=== PATIENT | male | born 1940 | race Caucasian/White ===

== ENCOUNTER 2018-06-09 11:59 | Outpatient (CLI) | payer OTHER, SELFPAY ==
--- NOTE | 2018-06-09 12:01 | DI.RAD.S_ITS ---
PROCEDURE: PAIN L/S TRANSFORAMINAL INJECT INDICATIONS: BIOMECHANICAL LESIONS FINDINGS: Fluoroscopic spot filming was performed to verify placement of spinal needles at the right L5-S1 level(s), as labeled on the films. Appropriate location(s) of the needle tip(s) was confirmed by injection of iodinated contrast. IMPRESSION: Successful right L5-S1 needle tip localization for transforaminal epidural steroid injection. Dictated by: Keyur Calvillo M.D. on 06/09/2018 at 15:04 Approved by: Keyur Calvillo M.D. on 06/09/2018 at 15:05
[2018-06-09 12:25] VITALS: BP 144/75; PULSE 58; RESP 18; TEMP 36.1; O2SAT 97
--- NOTE | 2018-06-09 13:04 | P.PCN_ITS ---
Procedures Date/Time Date of procedure: 06/09/18 Time of procedure: 13:02 General Procedure description: PREOP DIAGNOSIS 1. FORMAINAL STENOSIS WITH LE SYMPTOMS, POST OP DIAGNOSIS 1. FORMAINAL STENOSIS WITH LE SYMPTOMS, PROCEDURES 1.FLUOROSCOPICALLY GUIDED CONTRAST CONTROLLED TRANSFORAMINAL EPIDURAL STEROID INJECTION - RIGHT L5/S1 TFESI PHYSICIAN: Dung Ferrell DO INDICATIONS: Herb is referred by Dr. Collado for treatment of Foraminal Stenosis with right LE Symptoms FINDINGS Foraminal Nerve Root Compression secondary to disc disease and facet hypertrophy DESCRIPTION OF PROCEDURE Following denial of allergy and review of potential side effects and complications, including, but not necessarily limited to, infection, allergic reaction, local tissue breakdown, stroke, temporary or permanent nerve injury, paralysis, and possible , the patient indicated that the patient understood and agreed to proceed. An informed consent document was signed by the patient, witnessed by a nurse, and placed in the patient's chart. Additionally, other treatment options including medications, modalities, and physical therapy were reviewed with the patient. After review of previous anaesthesic history and IV conscious sedation the patient was deemed safe to proceed with todays procedure with IV conscious sedation as ASA class II designation. Safety time-out was performed to confirm patient ID, procedure to be performed and site of procedure. IV sedation was deemed niot necessary by the RN after DO, the patient remained responsive to all verbal commands In the prone position following sterile prep and drape of the lumbar region, the right L5/S1 posterior neuroforamen was identified fluoroscopically. The skin was anesthetized via a 25-gauge 1.5-inch needle with 1% lidocaine solution. At this point, a 25-gauge 3.5-inch spinal needle was atraumatically introduced and advanced under fluoroscopic guidance through the posterior right L5/S1 neuroforamen to approximately the anterior aspect of the canal. Depth was confirmed on lateral view. Following negative aspiration, injection of approximately 1.5 cc of Isovue 200 under live fluoroscopy in the AP view confirmed excellent flow along the nerve root, into the epidural space without vascular or intrathecal uptake observed Radiological data, including multiple fluoroscopic views of the lumbosacral spine, reveal a spinal needle at the right L5/S1 posterior neuroforamen. Subsequent views show flow of contrast material flowing superiorly and inferiorly along the nerve root confirming epidural flow. Subsequently, a test dose of 1.5 cc of 1% lidocaine solution was administered and patient was observed for two minutes for signs or symptoms of complications , including abdominal pain, shortness of breath, bilateral upper or lower extremity weakness, nausea and vomiting, prior to steroid injection. At this point, a total of 3 cc or 20 mg of dexamethasone and 80mg Depo Medrol was injected without incident. The procedure tolerated the procedure well without signs or symptoms of complications prior to transfer to the recovery area continued monitoring without incident. The patient was then transferred to the recovery area where they were observed for an appropriate time after the injection. The patient reported a VAS score of 7 prior to the procedure and a post-procedure VAS of 0. Total Fluoroscopy Time: 20.9 seconds Total Conscious Sedation Time: 24min POST OP INSTRUCTIONS The patient was provided a Pain Log to continue to record their response to the target-specific procedure prior to follow-up visit with their referring physician. Additionally, specific post-injection care instructions and a contact number to our office were provided if concerns arise regarding possible complications associated with the procedure are suspected. Dung Ferrell DO Complications: none
[2018-06-09 13:10] VITALS: BP 180/102; PULSE 71; RESP 18; O2SAT 96
[2018-06-09 13:15] VITALS: BP 184/100; PULSE 77; RESP 97; O2SAT 96
[2018-06-09 13:19] VITALS: BP 156/71; PULSE 72; RESP 18; O2SAT 96
[2018-06-09] MEDS: IOPAMIDOL 15 ML VIAL 3 ML INJ (13:26)
[2018-06-09] MEDS: DEXAMETHASONE 10 MG/ML VIAL 20 MG INJ (13:27)
[2018-06-09] MEDS: BUPIVACAINE 0.25% (PF) VIAL 2 ML INJ (13:27)
[2018-06-09] MEDS: methylPREDNISolone acetate 80 MG/ML VIAL INJ (13:27)
[2018-06-09 13:28] VITALS: BP 160/74; PULSE 70; RESP 20; O2SAT 98
[2018-06-09 13:39] VITALS: BP 135/65; PULSE 65; RESP 20; O2SAT 98
--- NOTE | 2018-06-10 13:42 | PC.NURSE ---
Called patient for follow up post procedure from yesterday. Pt did not answer so I left a message.
== END 2018-06-09 13:46 ==
LOC: RAD 12:00
PROVIDERS: PCP Family Medicine; Visit Provider Physical Medicine & Rehabilitation
DX: M48.07 Spinal stenosis, lumbosacral region (principal); M51.17 Intervertebral disc disorders with radiculopathy, lumbosacral region; M99.83 Other biomechanical lesions of lumbar region; M48.061 Spinal stenosis, lumbar region without neurogenic claudication
CPT/HCPCS: 64483; J1040; J1100; J2250

== ENCOUNTER → 2019-03-01 14:17 | Outpatient (CLI) | payer OTHER, SELFPAY ==
--- NOTE | 2019-03-01 14:20 | DI.RAD.S_ITS ---
PROCEDURE: PAIN L/S TRANSFORAMINAL INJECT INDICATIONS: SPINAL STENOSIS FINDINGS: Fluoroscopic spot filming was performed to verify placement of spinal needles at the L5-S1 level(s), as labeled on the films. Appropriate location(s) of the needle tip(s) was confirmed by injection of iodinated contrast. Dictated by: Doyle Willis M.D. on 03/01/2019 at 16:59 Approved by: Doyle Willis M.D. on 03/01/2019 at 17:00
[2019-03-01 15:00] VITALS: BP 132/54; PULSE 56; RESP 18; TEMP 36.4; O2SAT 99
[2019-03-01 15:33] VITALS: BP 148/63; PULSE 79; RESP 16; O2SAT 95
--- NOTE | 2019-03-01 15:35 | PC.NURSE ---
NO SEDATION MEDS GIVEN DURING PROCEDURE
[2019-03-01 15:38] VITALS: BP 160/95; PULSE 85; RESP 16; O2SAT 96
[2019-03-01] MEDS: BETAMETHASONE 30 MG/5 ML MDV 6 MG INJ (15:42)
[2019-03-01] MEDS: IOPAMIDOL 15 ML VIAL 3 ML INJ (15:42)
[2019-03-01] MEDS: DEXAMETHASONE 10 MG/ML VIAL 20 MG INJ (15:42)
[2019-03-01] MEDS: BUPIVACAINE 0.25% (PF) VIAL 2 ML INJ (15:42)
[2019-03-01 15:43] VITALS: BP 151/92; PULSE 74; RESP 16; O2SAT 94
--- NOTE | 2019-03-01 15:45 | PC.NURSE ---
NO SEDATION MEDS GIVEN. ASSISTING PT OFF TABLE AND TRANSPORTING TO POST PROC AREA IN STABLE CONDITION
--- NOTE | 2019-03-01 15:51 | PM.PROC.1 ---
Procedures Date/Time Date of procedure: 03/01/19 Time of procedure: 15:51 General Procedure description: PREOP DIAGNOSIS 1. FORMAINAL STENOSIS WITH LE SYMPTOMS, POST OP DIAGNOSIS 1. FORMAINAL STENOSIS WITH LE SYMPTOMS, PROCEDURES 1.FLUOROSCOPICALLY GUIDED CONTRAST CONTROLLED TRANSFORAMINAL EPIDURAL STEROID INJECTION - RIGHT L5/S1 TFESI PHYSICIAN: Dung Ferrell DO INDICATIONS: Herb is referred by for treatment of Foraminal Stenosis with right LE Symptoms FINDINGS Foraminal Nerve Root Compression secondary to disc disease and facet hypertrophy DESCRIPTION OF PROCEDURE Following denial of allergy and review of potential side effects and complications, including, but not necessarily limited to, infection, allergic reaction, local tissue breakdown, stroke, temporary or permanent nerve injury, paralysis, and possible , the patient indicated that the patient understood and agreed to proceed. An informed consent document was signed by the patient, witnessed by a nurse, and placed in the patient's chart. Additionally, other treatment options including medications, modalities, and physical therapy were reviewed with the patient. After review of previous anaesthesic history and IV conscious sedation the patient was deemed safe to proceed with todays procedure with IV conscious sedation as ASA class II designation. Safety time-out was performed to confirm patient ID, procedure to be performed and site of procedure. IV sedation was deemed unnecessary and thus not administered by the RN after DO order, titrated to patient comfort during the course of the procedure while the patient remained responsive to all verbal commands In the prone position following sterile prep and drape of the lumbar region, the right L5/S1 posterior neuroforamen was identified fluoroscopically. The skin was anesthetized via a 25-gauge 1.5-inch needle with 1% lidocaine solution. At this point, a 25-gauge 3.5-inch spinal needle was atraumatically introduced and advanced under fluoroscopic guidance through the posterior right L5/S1 neuroforamen to approximately the anterior aspect of the canal. Depth was confirmed on lateral view. Following negative aspiration, injection of approximately 1.5 cc of Isovue 200 under live fluoroscopy in the AP view confirmed excellent flow along the nerve root, into the epidural space without vascular or intrathecal uptake observed Radiological data, including multiple fluoroscopic views of the lumbosacral spine, reveal a spinal needle at the right L5/S1 posterior neuroforamen. Subsequent views show flow of contrast material flowing superiorly and inferiorly along the nerve root confirming epidural flow. Subsequently, a test dose of 1.5 cc of 1% lidocaine solution was administered and patient was observed for two minutes for signs or symptoms of complications, including abdominal pain, shortness of breath, bilateral upper or lower extremity weakness, nausea and vomiting, prior to steroid injection. At this point, a total of 3cc or 20mg of dexamethasone and 6mg of betamethesone was injected without incident. The procedure tolerated the procedure well without signs or symptoms of complications prior to transfer to the recovery area continued monitoring without incident. The patient was then transferred to the recovery area where they were observed for an appropriate time after the injection. The patient reported a VAS score of 7 prior to the procedure and a post-procedure VAS of 0. Total Fluoroscopy Time: 20.9 seconds Total Conscious Sedation Time: 24min POST OP INSTRUCTIONS The patient was provided a Pain Log to continue to record their response to the target-specific procedure prior to follow-up visit with their referring physician. Additionally, specific post-injection care instructions and a contact number to our office were provided if concerns arise regarding possible complications associated with the procedure are suspected. Dung Ferrell DO Complications: none
[2019-03-01 15:53] VITALS: BP 158/63; PULSE 48; RESP 18; O2SAT 96
--- NOTE | 2019-03-01 16:03 | PC.NURSE ---
Pt returned from procedure via wheelchair, he did not receive sedation. Able to move from w/c to chair with standby assist. Resumed monitoring from Sheryl BERG.
== END ==
PROVIDERS: PCP Family Medicine; Visit Provider Physical Medicine & Rehabilitation
DX: M48.07 Spinal stenosis, lumbosacral region (principal); M48.061 Spinal stenosis, lumbar region without neurogenic claudication; M51.17 Intervertebral disc disorders with radiculopathy, lumbosacral region; M99.83 Other biomechanical lesions of lumbar region
CPT/HCPCS: 64483; J0702; J1100; J2250; J3010

== ENCOUNTER → 2019-05-06 10:46 | Outpatient (CLI) | payer OTHER, SELFPAY ==
--- NOTE | 2019-05-06 10:48 | DI.MRI.S_ITS ---
PROCEDURE: MR LUMBAR SPINE WO CON INDICATIONS: Post laminectomy syndrome TECHNIQUE: Noncontrast sagittal T1 spin echo and T2 fast echo, sagittal STIR, axial T1 and T2 fast spin echo through the lumbar spine. In cases with scoliosis, additional coronal T2 fast spin echo may be performed. COMPARISON: [facility], XA, PAIN L/S TRANSFORAMINAL INJECT, 03/01/2019, 15:41. FINDINGS: Image quality: Excellent. Alignment and Curvature: There is normal bony alignment. Bone Marrow: Degenerative endplate signal changes are present in lumbar spine. No acute vertebral body compression fractures. Spinal Cord: Conus medullaris terminates at the L1-L2 level. Visualized cord demonstrates normal signal and size. Paraspinous Soft Tissues: No paravertebral masses. Note is made of a right renal cyst which is partially visualized. L1-L2: Mild loss of disc height and disc desiccation. There is diffuse posterior disc bulge and disc osteophyte complex. Mild bilateral facet arthropathy and hypertrophy of ligamentum flavum. The central canal is mildly narrowed. Mild bilateral foraminal stenosis. No definitive nerve root impingement. L2-L3: Mild loss of disc height and disc desiccation. There is diffuse posterior disc bulge and disc osteophyte complex. Mild bilateral facet arthropathy and hypertrophy of ligamentum flavum. The central canal is mildly narrowed. Mild bilateral foraminal stenosis. No definitive nerve root impingement. L3-L4: Preserved disc height. Mild to moderate disc desiccation. There is diffuse posterior disc bulge and disc osteophyte complex. Moderate bilateral facet arthropathy and hypertrophy of ligamentum flavum. The central canal is severely narrowed. Moderate left and mild right foraminal stenosis. There is nerve root impingement. L4-L5: Posterior decompression with bilateral laminectomies. Moderate loss of disc height and disc desiccation. There is diffuse posterior disc bulge and disc osteophyte complex. Moderate bilateral facet arthropathy. The central canal is patent. Moderate bilateral foraminal stenosis. There is nerve root impingement. L5-S1: Posterior decompression with bilateral laminectomies. Severe loss of disc height and disc desiccation. There is diffuse posterior disc bulge and posterior central disc protrusion. Mild bilateral facet arthropathy. The central canal is patent. Moderate bilateral foraminal stenosis. There is nerve root impingement. IMPRESSION: 1. Multilevel degenerative and postsurgical changes in lumbar spine as described. 2. Severe central canal stenosis at L3-L4. 3. Multilevel foraminal stenosis as described. Dictated by: Mariaelena Lamar M.D. on 05/06/2019 at 13:18 Approved by: Mariaelena Lamar M.D. on 05/06/2019 at 17:48
--- NOTE | 2019-05-06 10:48 | DI.MRI.S_ITS ---
PROCEDURE: MR CERVICAL SPINE WO CON INDICATIONS: Cervical stenosis TECHNIQUE: Noncontrast sagittal T1 spin echo and T2 fast spin echo, sagittal STIR, foraminal oblique sagittal T2 fast spin echo, and axial gradient echo or T2 fast spin echo through the cervical spine. COMPARISON: None. FINDINGS: Image quality: Excellent. Alignment and Curvature: There is normal bony alignment. Bone Marrow: There is an intraosseous hemangioma in C4 vertebral body. Degenerative endplate signal changes are present throughout the cervical spine Spinal Cord: There is loss of cord caliber and increased signal at level C6-C7 consistent with myelopathy and myelomalacia. No cerebellar tonsillar herniation. Paraspinous Soft Tissues: No paravertebral masses. Prevertebral soft tissues are normal in thickness. C2-C3: Preserved disc height. Mild disc desiccation. The central canal is patent. No foraminal stenosis. No definitive nerve root impingement. C3-C4: Severe loss of disc height and disc desiccation. There is diffuse posterior disc bulge and disc osteophyte complex. Mild bilateral facet arthropathy. The central canal is moderately narrowed. Severe foraminal stenosis bilaterally. Suspect bilateral nerve root impingement. C4-C5: Severe loss of disc height and disc desiccation. There is diffuse posterior disc bulge and disc osteophyte complex. Bilateral uncovertebral hypertrophy. Moderate right and mild left facet arthropathy. The central canal is moderately narrowed. Severe foraminal stenosis bilaterally. Suspect bilateral nerve root impingement. C5-C6: Severe loss of disc height and disc desiccation. There is diffuse posterior disc bulge and disc osteophyte complex. Bilateral uncovertebral hypertrophy. Mild bilateral facet arthropathy. The central canal is severely narrowed. Severe foraminal stenosis bilaterally. Suspect bilateral nerve root impingement. C6-C7: Severe loss of disc height and disc desiccation. There is diffuse posterior disc bulge and disc osteophyte complex. Bilateral uncovertebral hypertrophy. Mild bilateral facet arthropathy. The central canal is severely narrowed. Severe foraminal stenosis bilaterally. Suspect bilateral nerve root impingement. C7-T1: Normal appearance. IMPRESSION: 1. Multilevel degenerative disc disease and facet arthropathy as described. 2. Severe central canal stenosis at C5-C6 and C6-C7, moderate central canal stenosis at C3-C4 and C4-C5. 3. Multilevel foraminal stenosis as described, severe at C3-C4 bilaterally, C4-C5 bilaterally, C5-C6 bilaterally and C6-C7 bilaterally. 4. There is loss of cord caliber and abnormal cord signal in the lower cervical cord at level of C6-C7 consistent with myelopathy and myelomalacia. Dictated by: Mariaelena Lamar M.D. on 05/06/2019 at 13:35 Approved by: Mariaelena Lamar M.D. on 05/06/2019 at 17:47
== END ==
PROVIDERS: PCP Family Medicine; Visit Provider Physical Medicine & Rehabilitation
DX: M48.02 Spinal stenosis, cervical region (principal); M48.061 Spinal stenosis, lumbar region without neurogenic claudication; M96.1 Postlaminectomy syndrome, not elsewhere classified; M47.812 Spondylosis without myelopathy or radiculopathy, cervical region; G95.89 Other specified diseases of spinal cord; Z98.1 Arthrodesis status
CPT/HCPCS: 72141; 72148

== ENCOUNTER 2019-07-19 09:43 | Outpatient (CLI) | payer OTHER, SELFPAY ==
--- NOTE | 2019-07-19 09:44 | DI.RAD.S_ITS ---
PROCEDURE: PAIN L/SI FACET INJ/BLK 1STL INDICATIONS: SPONDYLOSIS FINDINGS: Fluoroscopic spot filming was performed to verify placement of spinal needles at the L4-L5 and L5-S1 level(s), as labeled on the films. Appropriate location(s) of the needle tip(s) was confirmed by injection of iodinated contrast. Dictated by: Doyle Willis M.D. on 07/19/2019 at 15:00 Approved by: Doyle Willis M.D. on 07/19/2019 at 15:01
[2019-07-19 09:50] VITALS: BP 139/67; PULSE 49; RESP 16; TEMP 36.2; O2SAT 95
[2019-07-19 11:30] VITALS: BP 92/62; PULSE 60; RESP 16; O2SAT 98
[2019-07-19 11:35] VITALS: BP 132/73; PULSE 64; RESP 20; O2SAT 95
[2019-07-19 11:40] VITALS: BP 150/34; PULSE 65; RESP 20; O2SAT 95
[2019-07-19] MEDS: BUPIVACAINE 0.5% (PF) VIAL 2 ML INJ (11:46)
[2019-07-19] MEDS: LIDOCAINE 1% 20 ML 10 ML INJ (11:47)
[2019-07-19] MEDS: BETAMETHASONE 30 MG/5 ML MDV 12 MG INJ (11:47)
[2019-07-19] MEDS: IOPAMIDOL 15 ML VIAL 3 ML INJ (11:47)
[2019-07-19 11:48] VITALS: BP 139/42; PULSE 70; RESP 18; O2SAT 96
--- NOTE | 2019-07-19 11:50 | PC.NURSE ---
Post procedure note: No sedation given per patient request. VSS throughout procedure. No complaints of pain. Sat up from procedure table and transfered to W/C without difficulty. Patient states pain level improved. Transported to post procedure for discharge via wheelchair. Report given to Taty Jackson RN.
--- NOTE | 2019-07-19 11:55 | P.PCN_ITS ---
Procedures Date/Time Date of procedure: 07/19/19 Time of procedure: 11:55 General Procedure description: PREOP DIAGNOSIS 1. FACET ARTHROPATHY 2. AXIAL LBP 3. MULTILEVEL DDD POST OP DIAGNOSIS 1. FACET ARTHROPATHY 2. AXIAL LBP 3. MULTILEVEL DDD PROCEDURES 1. FLUORSCOPICALLY GUIDED CONTRAST CONTROLLED FACET JOINT INJECTIONS BILATERAL L4/5, L5/S1 PHYSICIAN: Dung Ferrell, DO INDICATIONS Jaydon is referred by for treatment of Axial LBP FINDINGS Multilevel Facet Arthropathy with Clinically significant axial LBP DESCRIPTION OF PROCEDURE Fluoroscopically guided, contrast-controlled bilateral L4/5, L5/S1 facet joint injections. Following review of allergy and review of potential side effects and complications, including, but not necessarily limited to, infection, allergic reaction, local tissue breakdown, stroke, temporary or permanent nerve injury, paralysis, and possible , the patient indicated that the patient understood and agreed to proceed. An informed consent document was signed by the patient, witnessed by a nurse, and placed in the patient's chart. Additionally, other treatment options including medications, modalities, and physical therapy were reviewed with the patient. After review of previous anaesthesic history and IV conscious sedation the patient was deemed safe to proceed with todays procedure with IV conscious sedation as ASA class II designation. Safety time-out was performed to confirm patient ID, procedure to be performed and site of procedure. IV sedation was deemed unnecessary and thus not administered by the RN after DO order, titrated to patient comfort during the course of the procedure while the patient remained responsive to all verbal commands In the prone position, following sterile prep and drape of the lumbar region, the posterior aspect of the L4/5, L5/S1 facet joints were identified fluoroscopically. The skin was anesthetized via a 25-gauge 1.5-inch needle with 1% lidocaine solution into the corresponding facet joints. At this point, a 22-gauge 3.5-inch spinal needle was atraumatically introduced and advanced under fluoroscopic guidance into the corresponding facet joints. Following negative aspiration, injections of approximately 0.2-cc of Isovue 200 confirmed interarticular placement without vascular uptake. The identical procedure was then performed at the L4/5, L5/S1 facet joints on the left. Radiological data, including multiple fluoroscopic views of the lumbosacral spine, reveal a spinal needle at the L4/5, L5/S1 facet joints bilaterally. Subsequent views show flow of contrast material both superiorly and inferiorly within the joint space without vascular or intrathecal uptake. At this point, a total of 0.5 cc including a mixture of 0.25cc Marcaine and 0.25cc betamethasone was injected without complication into each of the corresponding facet joints. The patient tolerated the procedure well without signs or symptoms of complications prior to transfer to the recovery area continued monitoring without incident. The patient was then transferred to the recovery area where they were observed for an appropriate period of time after the injection. The patient reported a VAS score of 7 prior to the procedure and a post- procedure VAS of 0. Total Fluoroscopy Time: 20.3 seconds Total Conscious Sedation Time: 24min POST OP INSTRUCTIONS The patient was provided a Pain Log to continue to record their response to the target-specific procedure prior to follow-up visit with their referring physician. Additionally, specific post-injection care instructions and a contact number to our office were provided if concerns arise regarding possible complications associated with the procedure are suspected. Dung Ferrell, Complications: none
--- NOTE | 2019-07-19 14:26 | PC.NURSE ---
1155 rtr via w/c , post procedure , stable, snacks provided and tolerated.
== END 2019-07-19 12:03 | disposition home or self-care (01) ==
LOC: RAD 09:44
PROVIDERS: PCP Family Medicine; Visit Provider Physical Medicine & Rehabilitation
DX: M47.817 Spondylosis without myelopathy or radiculopathy, lumbosacral region (principal); M47.816 Spondylosis without myelopathy or radiculopathy, lumbar region; M54.5 Low back pain; M51.36 Other intervertebral disc degeneration, lumbar region; M51.37 Other intervertebral disc degeneration, lumbosacral region
CPT/HCPCS: 64493; 64494; J0702; J2250; J3010

== ENCOUNTER → 2020-03-10 09:27 | Outpatient (CLI) | payer OTHER, SELFPAY ==
[2020-03-11 08:27] LABS: COVID19 Sendout Not Detected (Not Detect)
== END ==
PROVIDERS: PCP Family Medicine; Visit Provider Physician Assistant
DX: Z01.818 Encounter for other preprocedural examination (principal)
CPT/HCPCS: 87635

== ENCOUNTER 2020-03-13 09:25 | Outpatient (CLI) | payer OTHER, SELFPAY ==
--- NOTE | 2020-03-13 09:26 | DI.RAD.S_ITS ---
PROCEDURE: PAIN L/S FACET INJ/BLK 1ST CAROL COMPARISON: None. INDICATIONS: SPONDYLOSIS FINDINGS: Fluoroscopic spot filming was performed to verify placement of spinal needles at the L4, L5, S1 level(s), as labeled on the films. Appropriate location(s) of the needle tip(s) was confirmed by injection of iodinated contrast. Dictated by: Doyle Willis M.D. on 03/13/2020 at 14:51 Approved by: Doyle Willis M.D. on 03/13/2020 at 14:52
[2020-03-13 09:58] VITALS: BP 129/67; PULSE 62; RESP 15; TEMP 36.1; O2SAT 97
[2020-03-13 10:39] VITALS: BP 149/99; PULSE 76; RESP 16; O2SAT 98
[2020-03-13 10:45] VITALS: BP 166/80; PULSE 68; RESP 16; O2SAT 98
[2020-03-13 10:49] VITALS: BP 150/66; PULSE 65; RESP 16; O2SAT 96
[2020-03-13] MEDS: BUPIVACAINE 0.5% (PF) VIAL 5 ML INJ (10:50)
[2020-03-13] MEDS: LIDOCAINE 1% 20 ML 10 ML INJ (10:50)
[2020-03-13] MEDS: IOPAMIDOL 15 ML VIAL 3 ML INJ (10:50)
[2020-03-13 10:54] VITALS: BP 152/72; PULSE 60; RESP 16; O2SAT 94
--- NOTE | 2020-03-13 10:57 | PC.NURSE ---
NO SEDATION MEDS GIVEN DURING THE PROCEDURE. ASSISTING PT OFF TABLE AND TRANSPORTING TO POST PROC AREA IN STABLE CONDITION. PASSING RN CARE OF PT OFF TO MORENA MUELLER.
--- NOTE | 2020-03-13 11:06 | P.PCN_ITS ---
Procedures Date/Time Date of procedure: 03/13/20 Time of procedure: 11:06 General Procedure description: Procedure description: 1. FACET ARTHROPATHY PROCEDURES: 1. BILATERAL- L4, L5 and S1 DIAGNOSTIC MB BLOCKS with LA Anesthetic PHYSICIAN: Dung Ferrell DO INDICATIONS Jaydon is referred by for treatment of Bilateral Axial LBP. DESCRIPTION OF PROCEDURE Fluoroscopically guided, contrast-controlled bilateral L4, L5 and S1 medial branch blocks with 0.5cc of 0.5% Marcaine. Following review of allergy and review of potential side effects and complications, including, but not necessarily limited to, infection, allergic reaction, local tissue breakdown, nerve injury, paralysis, stroke and possible , the patient indicated that the patient understood and agreed to proceed. An informed consent document was signed by the patient, witnessed by a nurse, and placed in the patient's chart. After review of previous anaesthesic history and IV conscious sedation the patient was deemed safe to proceed with todays procedure with IV conscious sedation as ASA class II designation. Safety time-out was performed to confirm patient ID, procedure to be performed and site of procedure. IV sedation was deemed unnecessary and thus not administered by the RN after DO order, titrated to patient comfort during the course of the procedure while the patient remained responsive to all verbal commands In the prone position, following sterile prep and drape of the lumbar region, the right L4, L5 and S1 anatomical location of the medial branch of the dorsal ramus was identified fluoroscopically. Subsequently an anesthetic skin wheal using 1% lidocaine solution was initiated at each of the anatomical spots. Subsequently then a 22-gauge 3.5-inch spinal needle was atraumatically introduced and advanced under fluoroscopic guidance at each of the corresponding sites at the right L4, L5 and S1 MB. After negative aspiration, 0.2cc of Isovue 200 was injected, confirming placement without vascular or intrathecal uptake. Subsequently then 0.5cc of 0.5% Marcaine solution was injected at each of the corresponding sites at the right L4, L5 and S1 medial branch locations. The identical procedure was replicated on the left. The patient tolerated the procedure well without signs or symptoms of complications prior to transfer to the recovery area continued monitoring without incident. Post-procedure, the patient was monitored initiating provocative activities to measure the amount of relief from block of the facetogenic pain. The patient reported a VAS of 7 prior to the procedure and a post-procedure VAS of 1. It has been a pleasure to assist in the diagnostic and therapeutic care of your patient. Total Fluoroscopy Time: 11 seconds Total Conscious Sedation Time: 0min POST OP INSTRUCTIONS The patient was provided with a Pain Log to complete over the next several hours and subsequent days prior to the patient's follow up with the ordering physician. If the patient has investment banking analyst relief to the solution applied, then they may be a candidate for medial branch rhizotomy. The patient is aware, was provided, once again, with a Pain Log and will follow up with the referring physician for review and clinical correlation Dung Ferrell DO Complications: none
[2020-03-13 11:08] VITALS: BP 129/83; PULSE 63; RESP 16; O2SAT 98
--- NOTE | 2020-03-13 11:11 | PC.NURSE ---
Pt returned to post procedure room via . Stable transfer from to chair. Monitoring resumed from valerie Saucedo
== END 2020-03-13 11:16 | disposition home or self-care (01) ==
LOC: RAD 09:25
PROVIDERS: PCP Family Medicine; Referring Provider Family Medicine; Visit Provider Physical Medicine & Rehabilitation
DX: M47.817 Spondylosis without myelopathy or radiculopathy, lumbosacral region (principal); M47.816 Spondylosis without myelopathy or radiculopathy, lumbar region; M54.5 Low back pain
CPT/HCPCS: 64493; 64494; J2250; J3010

== ENCOUNTER → 2020-04-02 09:55 | Outpatient (CLI) | payer OTHER, SELFPAY ==
--- NOTE | 2020-04-02 09:58 | DI.RAD.S_ITS ---
PROCEDURE: XR LUMBAR SPINE MIN 4V INDICATIONS: chronic progressive Low Back Pain TECHNIQUE: 5 views of the lumbar spine were acquired. [facility] [place] LUMB MIN 4VW, 05/21/2017, 14:08. FINDINGS: Bones: No fracture or focal osseous destruction. Straightening of the normal lordotic curvature. Severe narrowing of the L4-L5 disc space. Moderate L5-S1 disc space narrowing. Mild narrowing of the remaining lumbar disc spaces. Multilevel degenerative endplate sclerosis and spurring. Diffuse facet arthropathy. Prominent paravertebral osteophyte formation at L2-L3 as before Soft tissues: Overlying bowel gas pattern is normal. No suspicious soft tissue calcifications. Oblique images: No pars defects. IMPRESSION: Multilevel lumbar spondylosis and facet arthropathy as above. No interval change since 05/21/17 Dictated by: Doyle Willis M.D. on 04/02/2020 at 13:23 Approved by: Doyle Willis M.D. on 04/02/2020 at 13:27
== END ==
PROVIDERS: PCP Family Medicine; Referring Provider Physical Medicine & Rehabilitation; Visit Provider Physical Medicine & Rehabilitation
DX: M54.5 Low back pain (principal); M47.816 Spondylosis without myelopathy or radiculopathy, lumbar region; M47.817 Spondylosis without myelopathy or radiculopathy, lumbosacral region; M96.1 Postlaminectomy syndrome, not elsewhere classified; M48.02 Spinal stenosis, cervical region; M17.11 Unilateral primary osteoarthritis, right knee; G89.29 Other chronic pain
CPT/HCPCS: 20611; 72110; 99213; J0702

== ENCOUNTER → 2020-05-19 10:05 | Outpatient (CLI) | payer OTHER, SELFPAY ==
[2020-05-21 21:04] LABS: COVID19 Sendout Not Detected (Not Detect)
== END ==
PROVIDERS: PCP Family Medicine; Visit Provider Physician Assistant
DX: Z11.59 Encounter for screening for other viral diseases (principal)
CPT/HCPCS: 87635

== ENCOUNTER 2020-05-22 07:26 | Outpatient (CLI) | payer OTHER, SELFPAY ==
[2020-05-22] VITALS (9 sets, daily range): BP systolic 103–149; BP diastolic 53–125; PULSE 49–63; RESP 16–23; TEMP 36.3; O2SAT 94–98
--- NOTE | 2020-05-22 07:27 | DI.RAD.S_ITS ---
PROCEDURE: PAIN L/S MED/LAT N RFA BILAT INDICATIONS: SPONDYLOSIS COMPARISON: None. FINDINGS: Fluoroscopic spot filming was performed to verify placement of spinal needles at the L4, L5, S1 level(s), as labeled on the films. Appropriate location(s) of the needle tip(s) was confirmed by injection of iodinated contrast. Dictated by: Doyle Willis M.D. on 05/22/2020 at 10:07 Approved by: Doyle Willis M.D. on 05/22/2020 at 10:07
[2020-05-22] MEDS: MIDAZOLAM 5 MG/5 ML VIAL IV (08:36)
--- NOTE | 2020-05-22 08:36 | PC.NURSE ---
pt tolerated procedure well, assisted off table to wc. tranferred to pre procedure room
[2020-05-22] MEDS: fentaNYL 100 MCG/2 ML INJ 50 MCG IV (08:37)
[2020-05-22] MEDS: BUPIVACAINE 0.5% (PF) VIAL 5 ML INJ (08:53)
[2020-05-22] MEDS: LIDOCAINE 1% 20 ML 10 ML INJ (08:54)
--- NOTE | 2020-05-22 09:15 | P.PCN_ITS ---
Date/Time/Diagnoses Date of procedure: 05/22/20 Time of procedure: 09:15 Pre-procedure diagnosis: 1. RECALCITRANT FACET ARTHROPATHY Post-procedure diagnosis: same Procedure Notes Procedure: 1. BILATERAL L4 AND L5 MEDIAL BRANCH RADIOFREQUENCY NEUROTOMY AND S1 DORSAL RAMUS BRANCH RADIOFREQUENCY NEUROTOMY Indications: Jaydon is referred by for treatment of facet arthropathy. Physician: Dung Ferrell Total Fluoroscopy time (seconds): 19 Total sedation minutes: 30 Complications: none Procedure in detail & Post-procedure care: DESCRIPTION OF PROCEDURE Bilateral L4 and L5 medial branch radiofrequency neurotomy and Bilateral S1 dorsal ramus radiofrequency neurotomy under fluoroscopy with conscious sedation. The patient is well known to this clinic having undergone previous facet injections with good but temporary relief. The patient has experienced appropriate, concordant relief with previous facet and median branch blocks but the patient's pain has been recalcitrant to further conservative measures. Therefore, based upon the patient's relief and persistent symptoms, the patient is considered an appropriate candidate for facet rhizotomy. All of the patient's questions regarding the risks versus benefits of the procedure, including, but not limited to, bleeding, infection, temporary as well as lasting nerve injury, paralysis, stroke, and , as well treatment alternatives were answered to satisfaction. After obtaining informed consent, denial of pertinent drug allergies, as well as being made aware of the potential risks of bleeding, infection, spinal cord trauma, paralysis, temporary and permanent nerve damage, seizure, stroke, and possible , the patient was brought to the fluoroscopy suite and positioned prone on the fluoroscopy table. The lumbar region was prepped with Betadine and covered with a fenestrated drape in the usual sterile fashion. Appropriate monitors applied including pulse oximeter, pulse, and blood pressure for regular monitoring throughout the procedure. After review of previous anaesthesic history and IV conscious sedation the patient was deemed safe to proceed with today's procedure with IV conscious sedation as ASA class II designation. Safety time-out was performed to confirm patient ID, procedure to be performed and site of procedure. IV sedation was accomplished with a combination of 5mg of Versed and 50mcg of Fentanyl administered by the RN after DO order, titrated to patient comfort during the course of the procedure while the patient remained responsive to all verbal commands. After local infiltration using 1% lidocaine, under fluoroscopic guidance, a 10- cm RF insulated needle with a 10-mm active tip was positioned parallel to the junction of the right sacral ala and the superior articulating process where the S1 dorsal ramus resides. Needle placement was confirmed with motor stimulation of .5v on the right which produced local stimulation without radicular component. The stimulation was then increased to 1.5v with, once again, only local multifidus stimulation without radicular component. The needle was then removed and the identical procedure was performed along the length of the right L5 medial branch with motor stimulation at .7v on the right. The identical procedure was once again performed along the length of the right L4 medial branch with motor stimulation of .5v on the right. The medial branches were then anesthetised with 0.5% Marcaine. This was then followed by two discreet lesions performed at 80 degrees Celsius for 90 seconds each. The identical procedure was repeated on the left. The patient tolerated the procedure well without signs or symptoms of complications prior to transfer to the recovery area continued monitoring without incident. The patient was then transferred to the recovery area where they were observed for an appropriate period of time after the injection. The patient reported a VAS score of 7 prior to the procedure and a post-procedure VAS of 0. POST OP INSTRUCTIONS The patient was provided a Pain Log to continue to record the patient's response to the target-specific procedure prior to the patient's follow-up visit with the referring physician. Additionally, specific post-injection care instructions and a contact number to our office were provided if concerns arise regarding possible complications associated with the procedure are suspected.
--- NOTE | 2020-05-22 09:42 | PC.NURSE ---
Pt tolerated procedure well. Ambulated to wheelchair for discharge on his own. Vitals stable. Tolerating coffee, water, and cookies. No post procdure questions after education. Ride waiting in parking lot. IV removed without incident.
--- NOTE | 2020-05-22 15:51 | PC.NURSE ---
late entry: pt tolerated procedure well, 2PA transfer from table to . pt returned to pre proc room for observation
== END 2020-05-22 11:24 ==
LOC: RAD 07:27
PROVIDERS: PCP Family Medicine; Referring Provider Family Medicine; Visit Provider Physical Medicine & Rehabilitation
DX: M47.817 Spondylosis without myelopathy or radiculopathy, lumbosacral region (principal); M47.816 Spondylosis without myelopathy or radiculopathy, lumbar region
CPT/HCPCS: 64635; 64636; 99152; 99153; J2250; J3010

== ENCOUNTER → 2020-08-13 11:56 | Outpatient (CLI) | payer OTHER, SELFPAY ==
[2020-08-14 22:25] LABS: COVID19 Sendout Not Detected (Not Detect)
== END ==
PROVIDERS: PCP Family Medicine; Visit Provider Physician Assistant
DX: Z11.59 Encounter for screening for other viral diseases (principal)
CPT/HCPCS: 87635

== ENCOUNTER 2020-08-16 08:56 | Outpatient (CLI) | payer OTHER, SELFPAY ==
[2020-08-16] VITALS (7 sets, daily range): BP systolic 124–177; BP diastolic 61–104; PULSE 52–70; RESP 14–20; TEMP 35.9; O2SAT 93–97
--- NOTE | 2020-08-16 09:01 | DI.RAD.S_ITS ---
PROCEDURE: PAIN SI JOINT INJECTION INDICATIONS: SACROCOCCYGEAL DISORDER COMPARISON: None. FINDINGS: Fluoroscopic spot filming was performed to verify placement of spinal needles at the inferior right sacroiliac joint level(s), as labeled on the films. Appropriate location(s) of the needle tip(s) was confirmed by injection of iodinated contrast. IMPRESSION: Needle tip localization at the inferior margin of the right sacroiliac joint, for steroid injection Dictated by: Keyur Calvillo M.D. on 08/16/2020 at 10:52 Approved by: Keyur Calvillo M.D. on 08/16/2020 at 11:03
[2020-08-16] MEDS: BETAMETHASONE 30 MG/5 ML MDV 12 MG INJ (10:09)
[2020-08-16] MEDS: IOPAMIDOL 15 ML VIAL 3 ML INJ (10:09)
[2020-08-16] MEDS: BUPIVACAINE 0.5% (PF) VIAL 2 ML INJ (10:09)
--- NOTE | 2020-08-16 10:21 | PM.PROC.IR.1 ---
Date/Time/Diagnoses Date of procedure: 08/16/20 Time of procedure: 10:21 Pre-procedure diagnosis: Sacroiliac Joint Pain/DJD Post-procedure diagnosis: same Procedure Notes Procedure: Fluoroscopically guided contrast controlled left sacroiliac joint injection Indications: Jaydon is referred by Dr. Collado for treatment of left sacroiliac joint DJD Physician: Dung Ferrell Total Fluoroscopy time (seconds): 8 Total sedation minutes: 0 Complications: none Procedure in detail & Post-procedure care: DESCRIPTION OF PROCEDURE Fluoroscopic guided, contrast controlled left sacroiliac joint injection Following review of allergies and review of potential side effects and complications, including, but not necessarily limited to, infection, allergic reaction, local tissue breakdown, temporary as well as permanent nerve injury, paralysis, stroke and possible , the patient indicated that they understood and agreed to proceed. An informed consent was signed by the patient, witnessed by a nurse, and placed in the patient's chart. Additionally, other treatment options including modalities, medications, and physical therapy were reviewed with the patient. After review of previous anaesthesic history and IV conscious sedation the patient was deemed safe to proceed with today?s procedure with IV conscious sedation as ASA class II designation. Safety time-out was performed to confirm patient ID, procedure to be performed and site of procedure. IV sedation was deemed unnecessary and thus not administered by the RN after DO order, titrated to patient comfort during the course of the procedure while the patient remained responsive to all verbal commands. In the prone position following sterile prep and drape of the pelvic region, the hyper lucency on in the inferior aspect of the left sacroiliac joint was identified fluoroscopically the skin was anesthetized be a 25 gauge 1 eventual with approximately 2cc of 1% lidocaine solution. At this point, a 22 gauge 3inch spinal needle was atraumatically introduced and advanced under fluoroscopic guidance into the inferior aspect of the left sacroiliac joint. Following negative aspiration, approximately 0.3cc of Isovue-300 was injected confirming intra-articular placement without vascular uptake. Radiographic data, including multiple fluoroscopic views of the pelvis, reveals a spinal needle in the left sacroiliac joint hyper lucent zone. Subsequent view show flow contrast tear superiorly and inferiorly within the joint capsule without vascular intrathecal uptake. At this point a total of 1cc or 0.5% Marcaine was combined with 1cc of 6mg of betamethasone was injected without incident. The patient tolerated the procedure well without signs or symptoms of complications prior to transfer to the recovery area for further monitoring. The patient was then transferred to the recovery area with a bur observed for an appropriate time after the injection. The patient reverted a vas score of 7 prior to the procedure and postprocedure vas of 1. POSTOP INSTRUCTIONS The patient was provided with a pain like to continue to record the patient's response to the target specific procedure prior to the patient's follow-up visit with the referring physician. Additionally, specific post injection care instructions and a contact number to our office were provided if concerns arise regarding the possible complications associated with procedure are suspected.
--- NOTE | 2020-08-16 10:43 | PC.NURSE ---
Pt had no sedation. In post procedure monitoring, found to have multiple PACs and in trigemeny. Dr Ferrell aware and in room. ok with. Pt asymptomatic. D/C now per Dr Ferrell approval. IV removed. Pt ambualting well with no problem- strong steady gait observed. Pain 10/28
== END 2020-08-16 10:35 | disposition home or self-care (01) ==
PROVIDERS: PCP Family Medicine; Referring Provider Physical Medicine & Rehabilitation; Visit Provider Physical Medicine & Rehabilitation
DX: M53.3 Sacrococcygeal disorders, not elsewhere classified (principal); M46.1 Sacroiliitis, not elsewhere classified
CPT/HCPCS: 27096; J0702; J2250; J3010

== ENCOUNTER → 2020-12-03 15:43 | Outpatient (CLI) | payer OTHER, SELFPAY ==
[2020-12-03 16:23] LABS: COVID19 -Nasal RAPID Negative (Negative)
== END ==
PROVIDERS: PCP Family Medicine; Visit Provider Physical Medicine & Rehabilitation
DX: Z20.822 Contact with and (suspected) exposure to COVID-19 (principal)
CPT/HCPCS: 87635; C9803

== ENCOUNTER 2020-12-04 14:14 | Outpatient (CLI) | payer OTHER, SELFPAY ==
[2020-12-04] VITALS (7 sets, daily range): BP systolic 139–188; BP diastolic 64–86; PULSE 54–64; RESP 13–22; TEMP 36.4; O2SAT 95–98
--- NOTE | 2020-12-04 14:15 | DI.RAD.S_ITS ---
PROCEDURE: PAIN L/S TRANSFORAMINAL INJECT INDICATIONS: SPONDYLOSIS COMPARISON: [facility], , PAIN L/S TRANSFORAMINAL INJECT, 03/01/2019, 15:41. FINDINGS: Fluoroscopic spot filming was performed to verify placement of a spinal needle at the L5-S1 level, as labeled on the films. Appropriate location of the needle tip was confirmed by injection of iodinated contrast. IMPRESSION: No significant intraprocedural abnormality. Dictated by: Yang Crocker M.D. on 12/04/2020 at 14:47 Approved by: Yang Crocker M.D. on 12/04/2020 at 14:47
[2020-12-04] MEDS: fentaNYL 100 MCG/2 ML INJ 50 MCG IV (14:56)
[2020-12-04] MEDS: MIDAZOLAM 5 MG/5 ML VIAL IV (14:56)
[2020-12-04] MEDS: DEXAMETHASONE 10 MG/ML VIAL INJ (15:04)
[2020-12-04] MEDS: IOPAMIDOL 15 ML VIAL 3 ML INJ (15:04)
[2020-12-04] MEDS: BUPIVACAINE 0.25% (PF) VIAL 2 ML INJ (15:04)
[2020-12-04] MEDS: BETAMETHASONE 30 MG/5 ML MDV 12 MG INJ (15:05)
--- NOTE | 2020-12-04 15:08 | PM.PROC.IR.1 ---
Date/Time/Diagnoses Date of procedure: 12/04/20 Time of procedure: 15:08 Pre-procedure diagnosis: 1. FORAMINAL STENOSIS WITH LE SYMPTOMS Post-procedure diagnosis: same Procedure Notes Procedure: 1. FLUOROSCOPICALLY GUIDED CONTRAST CONTROLLED TRANSFORAMINAL EPIDURAL STEROID INJECTION - RIGHT L5/S1 TFESI Indications: Jaydon is referred by Dr. Collado for treatment of Foraminal Stenosis with right LE Symptoms Physician: Dung Ferrell Total Fluoroscopy time (seconds): 9 Total sedation minutes: 10 Complications: none Procedure in detail & Post-procedure care: FINDINGS Foraminal Nerve Root Compression secondary to disc disease and facet hypertrophy DESCRIPTION OF PROCEDURE Following review of allergy and review of potential side effects and complications, including, but not necessarily limited to, infection, allergic reaction, local tissue breakdown, stroke, temporary or permanent nerve injury, paralysis, and possible , the patient indicated that the patient understood and agreed to proceed. An informed consent document was signed by the patient, witnessed by a nurse, and placed in the patient's chart. Additionally, other treatment options including medications, modalities, and physical therapy were reviewed with the patient. After review of previous anaesthesic history and IV conscious sedation the patient was deemed safe to proceed with today?s procedure with IV conscious sedation as ASA class II designation. Safety time-out was performed to confirm patient ID, procedure to be performed and site of procedure. IV sedation was accomplished with a combination of 2mg of Versed and 50mcg of Fentanyl was administered by the RN after DO order, titrated to patient comfort during the course of the procedure while the patient remained responsive to all verbal commands In the prone position following sterile prep and drape of the lumbar region, the right L5/S1 posterior neuroforamen was identified fluoroscopically. The skin was anesthetized via a 25-gauge 1.5-inch needle with 1% lidocaine solution. At this point, a 25-gauge 3.5-inch spinal needle was atraumatically introduced and advanced under fluoroscopic guidance through the posterior right L5/S1 neuroforamen to approximately the anterior aspect of the canal. Depth was confirmed on lateral view. Following negative aspiration, injection of approximately 1.5cc of Isovue 200 under live fluoroscopy in the AP view confirmed excellent flow along the nerve root, into the epidural space without vascular or intrathecal uptake observed Radiological data, including multiple fluoroscopic views of the lumbosacral spine, reveal a spinal needle at the right L5/S1 posterior neuroforamen. Subsequent views show flow of contrast material flowing superiorly and inferiorly along the nerve root confirming epidural flow. Subsequently, a test dose of 1.5cc of 1% lidocaine solution was administered and patient was observed for two minutes for signs or symptoms of complications, including abdominal pain, shortness of breath, bilateral upper or lower extremity weakness, nausea and vomiting, prior to steroid injection. At this point, a total of 3cc or 20mg of dexamethasone and 6mg betamethasone was injected without incident. The procedure tolerated the procedure well without signs or symptoms of complications prior to transfer to the recovery area continued monitoring without incident. The patient was then transferred to the recovery area where they were observed for an appropriate time after the injection. The patient reported a VAS score of 7 prior to the procedure and a post-procedure VAS of 0. POST OP INSTRUCTIONS The patient was provided a Pain Log to continue to record their response to the target-specific procedure prior to follow-up visit with their referring physician. Additionally, specific post-injection care instructions and a contact number to our office were provided if concerns arise regarding possible complications associated with the procedure are suspected.
== END 2020-12-04 15:35 | disposition home or self-care (01) ==
LOC: RAD 14:15
PROVIDERS: PCP Family Medicine; Referring Provider Physical Medicine & Rehabilitation; Visit Provider Physical Medicine & Rehabilitation
DX: M48.07 Spinal stenosis, lumbosacral region (principal); M51.17 Intervertebral disc disorders with radiculopathy, lumbosacral region
CPT/HCPCS: 64483; 99152; J0702; J1100; J2250; J3010

== ENCOUNTER → 2021-07-08 10:27 | Outpatient (CLI) | payer OTHER, SELFPAY ==
[2021-07-08 12:42] LABS: COVID19 -Nasal RAPID Negative (Negative)
== END ==
PROVIDERS: PCP Family Medicine; Visit Provider Physical Medicine & Rehabilitation
DX: Z20.822 Contact with and (suspected) exposure to COVID-19 (principal)
CPT/HCPCS: 87635; C9803

== ENCOUNTER 2021-07-09 10:41 | Outpatient (CLI) | payer OTHER, SELFPAY ==
[2021-07-09] VITALS (8 sets, daily range): BP systolic 117–170; BP diastolic 60–77; PULSE 52–66; RESP 10–20; TEMP 36.3; O2SAT 97–99
--- NOTE | 2021-07-09 10:42 | DI.RAD.S_ITS ---
PROCEDURE: PAIN L/S TRANSFORAMINAL INJECT INDICATIONS: SPONDYLOSIS COMPARISON: [facility], , PAIN L/S TRANSFORAMINAL INJECT, 12/04/2020, 14:56. FINDINGS: Fluoroscopic spot filming was performed to verify placement of a spinal needle at the L5-S1 level, as labeled on the films. Appropriate location of the needle tip was confirmed by injection of iodinated contrast. IMPRESSION: No significant intraprocedural abnormality. Dictated by: Yang Crocker M.D. on 07/09/2021 at 10:52 Approved by: Yang Crocker M.D. on 07/09/2021 at 10:52
[2021-07-09] MEDS: MIDAZOLAM 5 MG/5 ML VIAL IV (11:28)
[2021-07-09] MEDS: IOPAMIDOL 15 ML VIAL 3 ML INJ (11:32)
[2021-07-09] MEDS: BETAMETHASONE 30 MG/5 ML MDV 12 MG INJ (11:32)
[2021-07-09] MEDS: BUPIVACAINE 0.25% (PF) VIAL 2 ML INJ (11:32)
[2021-07-09] MEDS: DEXAMETHASONE 10 MG/ML VIAL 20 MG INJ (11:33)
--- NOTE | 2021-07-09 11:43 | P.PCN_ITS ---
Date/Time/Diagnoses Date of procedure: 07/09/21 Time of procedure: 11:43 Pre-procedure diagnosis: FORAMINAL STENOSIS WITH LE SYMPTOMS Post-procedure diagnosis: same Procedure Notes Procedure: 1. FLUOROSCOPICALLY GUIDED CONTRAST CONTROLLED TRANSFORAMINAL EPIDURAL STEROID INJECTION - RIGHT L5/S1 TFESI Indications: Jaydon is referred by Dr. Collado for treatment of Foraminal Stenosis with Right LE Symptoms Physician: Dung Ferrell Total Fluoroscopy time (seconds): 5 Total sedation minutes: 10 Complications: none Procedure in detail & Post-procedure care: FINDINGS Foraminal Nerve Root Compression secondary to disc disease and facet hypertrophy DESCRIPTION OF PROCEDURE Following review of allergy and review of potential side effects and complications, including, but not necessarily limited to, infection, allergic reaction, local tissue breakdown, stroke, temporary or permanent nerve injury, paralysis, and possible , the patient indicated that the patient understood and agreed to proceed. An informed consent document was signed by the patient, witnessed by a nurse, and placed in the patient's chart. Additionally, other treatment options including medications, modalities, and physical therapy were reviewed with the patient. After review of previous anaesthesic history and IV conscious sedation the patient was deemed safe to proceed with today?s procedure with IV conscious sedation as ASA class II designation. Safety time-out was performed to confirm patient ID, procedure to be performed and site of procedure. IV sedation was accomplished with a combination of 2mg of Versed and 50mcg of Fentanyl was administered by the RN after DO order, titrated to patient comfort during the course of the procedure while the patient remained responsive to all verbal commands In the prone position following sterile prep and drape of the lumbar region, the right L5/S1 posterior neuroforamen was identified fluoroscopically. The skin was anesthetized via a 25-gauge 1.5-inch needle with 1% lidocaine solution. At this point, a 25-gauge 3.5-inch spinal needle was atraumatically introduced and advanced under fluoroscopic guidance through the posterior right L5/S1 neuroforamen to approximately the anterior aspect of the canal. Depth was confirmed on lateral view. Following negative aspiration, injection of approximately 1.5cc of Isovue 200 under live fluoroscopy in the AP view confirmed excellent flow along the nerve root, into the epidural space without vascular or intrathecal uptake observed Radiological data, including multiple fluoroscopic views of the lumbosacral spine, reveal a spinal needle at the right L5/S1 posterior neuroforamen. Subsequent views show flow of contrast material flowing superiorly and inferiorly along the nerve root confirming epidural flow. Subsequently, a test dose of 1.5 cc of 1% lidocaine solution was administered and patient was observed for two minutes for signs or symptoms of complications, including abdominal pain, shortness of breath, bilateral upper or lower extremity weakness, nausea and vomiting, prior to steroid injection. At this point, a total of 3cc or 20mg of dexamethasone and 12mg of betamethasone was injected without incident. The procedure tolerated the procedure well without signs or symptoms of complications prior to transfer to the recovery area continued monitoring without incident. The patient was then transferred to the recovery area where they were observed for an appropriate time after the injection. The patient reported a VAS score of 7 prior to the procedure and a post- procedure VAS of 0. POST OP INSTRUCTIONS The patient was provided a Pain Log to continue to record their response to the target-specific procedure prior to follow-up visit with their referring physician. Additionally, specific post-injection care instructions and a contact number to our office were provided if concerns arise regarding possible complications associated with the procedure are suspected.
== END 2021-07-09 12:00 | disposition home or self-care (01) ==
LOC: RAD 10:42
PROVIDERS: PCP Family Medicine; Referring Provider Physical Medicine & Rehabilitation; Visit Provider Physical Medicine & Rehabilitation
DX: M48.07 Spinal stenosis, lumbosacral region (principal); M48.061 Spinal stenosis, lumbar region without neurogenic claudication; M51.17 Intervertebral disc disorders with radiculopathy, lumbosacral region
CPT/HCPCS: 64483; 99152; J0702; J1100; J2250; J3010

== ENCOUNTER → 2022-06-09 08:35 | Outpatient (CLI) | payer OTHER, SELFPAY ==
--- NOTE | 2022-06-09 08:37 | DI.RAD.S_ITS ---
PROCEDURE: XR SHOULDER LT MIN 2V INDICATIONS: LEFT SHOULDER PAIN TECHNIQUE: 3 views of the shoulder were acquired. COMPARISON: None. FINDINGS: Bones: No fractures or dislocations. No suspicious bony lesions. Visualized ribs appear intact. Moderate AC joint hypertrophy. Soft tissues: No suspicious soft tissue calcifications. IMPRESSION: 1. No acute osseous abnormality. If symptoms persist, follow-up radiographs and/or CT or MRI may be helpful for further evaluation. 2. Degenerative changes of the acromioclavicular joint are present. Dictated by: Devonte Ware M.D. on 06/09/2022 at 9:35 Approved by: Devonte Ware M.D. on 06/09/2022 at 9:37
--- NOTE | 2022-06-09 08:37 | DI.RAD.S_ITS ---
PROCEDURE: XR SHOULDER RT MIN 2V INDICATIONS: RIGHT SHOULDER PAIN TECHNIQUE: 3 views of the shoulder were acquired. COMPARISON: None. FINDINGS: Bones: No fractures or dislocations. No suspicious bony lesions. Visualized ribs appear intact. Moderate AC joint hypertrophy. Soft tissues: No suspicious soft tissue calcifications. IMPRESSION: 1. No acute fracture visualized. If symptoms persist, follow-up radiographs and/or CT may be helpful for further evaluation. 2. Degenerative changes of the acromioclavicular joint are present. Dictated by: Devonte Ware M.D. on 06/09/2022 at 9:30 Approved by: Devonte Ware M.D. on 06/09/2022 at 9:35
== END ==
PROVIDERS: PCP Family Medicine; Referring Provider Physical Medicine & Rehabilitation; Visit Provider Physical Medicine & Rehabilitation
DX: M25.512 Pain in left shoulder (principal); M96.1 Postlaminectomy syndrome, not elsewhere classified; M17.11 Unilateral primary osteoarthritis, right knee; M47.817 Spondylosis without myelopathy or radiculopathy, lumbosacral region; G56.20 Lesion of ulnar nerve, unspecified upper limb; M99.83 Other biomechanical lesions of lumbar region; M25.511 Pain in right shoulder; Z96.652 Presence of left artificial knee joint
CPT/HCPCS: 73030; 99215

== ENCOUNTER → 2022-07-03 09:11 | Outpatient (CLI) | payer OTHER, SELFPAY | PROVIDERS: Family Provider Family Medicine; PCP Family Medicine; Referring Provider Physical Medicine & Rehabilitation; Visit Provider Physical Medicine & Rehabilitation | DX: G56.20 Lesion of ulnar nerve, unspecified upper limb (principal); Z98.1 Arthrodesis status | CPT/HCPCS: 95886; 95913 ==

== ENCOUNTER 2022-08-28 12:43 | Outpatient (CLI) | payer OTHER, SELFPAY ==
[2022-08-28] VITALS (9 sets, daily range): BP systolic 145–180; BP diastolic 64–88; PULSE 52–68; RESP 15–22; TEMP 36.3; O2SAT 97–99
--- NOTE | 2022-08-28 12:45 | DI.RAD.S_ITS ---
PROCEDURE: PAIN L/S TRANSFORAM INJECT CAROL COMPARISON: [facility], , PAIN L/S TRANSFORAMINAL INJECT, 07/09/2021, 11:33. INDICATIONS: SPONDYLOSIS FINDINGS: Fluoroscopic spot filming was performed to verify placement of spinal needles on both sides at the L5-S1 level, as labeled on the films. Appropriate location of the needle tips was confirmed by injection of iodinated contrast. IMPRESSION: Intraprocedural examination demonstrating appropriate positions of the needles. Dictated by: Yang Crocker M.D. on 08/28/2022 at 16:02 Approved by: Yang Crocker M.D. on 08/28/2022 at 16:02
[2022-08-28] MEDS: MIDAZOLAM 2 MG/2 ML VIAL IV (14:15)
[2022-08-28] MEDS: BUPIVACAINE 0.25% (PF) VIAL 2 ML INJ (14:21)
[2022-08-28] MEDS: IOPAMIDOL 15 ML VIAL 3 ML INJ (14:21)
[2022-08-28] MEDS: BETAMETHASONE 30 MG/5 ML MDV 12 MG INJ (14:21)
[2022-08-28] MEDS: DEXAMETHASONE 10 MG/ML VIAL 20 MG INJ (14:22)
--- NOTE | 2022-08-28 14:41 | PM.PROC.IR.1 ---
Date/Time/Diagnoses Date of procedure: 08/28/22 Time of procedure: 14:41 Pre-procedure diagnosis: 1. FORAMINAL STENOSIS WITH LE SYMPTOMS Post-procedure diagnosis: same Procedure Notes Procedure: 1. FLUOROSCOPICALLY GUIDED CONTRAST CONTROLLED TRANSFORAMINAL EPIDURAL STEROID INJECTION - BILATERAL L5/S1 TFESI Indications: Jaydon is referred by Dr. Collado for treatment of Foraminal Stenosis with bilateral LE Symptoms Physician: Dung Ferrell Total Fluoroscopy time (seconds): 18 Total sedation minutes: 19 Complications: none Procedure in detail & Post-procedure care: FINDINGS Foraminal Nerve Root Compression secondary to disc disease and facet hypertrophy DESCRIPTION OF PROCEDURE Following review of allergy and review of potential side effects and complications, including, but not necessarily limited to, infection, allergic reaction, local tissue breakdown, stroke, temporary or permanent nerve injury, paralysis, and possible , the patient indicated that the patient understood and agreed to proceed. An informed consent document was signed by the patient, witnessed by a nurse, and placed in the patient's chart. Additionally, other treatment options including medications, modalities, and physical therapy were reviewed with the patient. After review of previous anaesthesic history and IV conscious sedation the patient was deemed safe to proceed with today?s procedure with IV conscious sedation as ASA class II designation. Safety time-out was performed to confirm patient ID, procedure to be performed and site of procedure. IV sedation was accomplished with a combination of 2mg of Versed was administered by the RN after DO order, titrated to patient comfort during the course of the procedure while the patient remained responsive to all verbal commands In the prone position following sterile prep and drape of the lumbar region, the right L5/S1 posterior neuroforamen was identified fluoroscopically. The skin was anesthetized via a 25-gauge 1.5-inch needle with 1% lidocaine solution. At this point, a 25-gauge 3.5-inch spinal needle was atraumatically introduced and advanced under fluoroscopic guidance through the posterior right L5/S1 neuroforamen to approximately the anterior aspect of the canal. Depth was confirmed on lateral view. Following negative aspiration, injection of approximately 1.5cc of Isovue 200 under live fluoroscopy in the AP view confirmed excellent flow along the nerve root, into the epidural space without vascular or intrathecal uptake observed Radiological data, including multiple fluoroscopic views of the lumbosacral spine, reveal a spinal needle at the right L5/S1 posterior neuroforamen. Subsequent views show flow of contrast material flowing superiorly and inferiorly along the nerve root confirming epidural flow. Subsequently, a test dose of 1.5cc of 1% lidocaine solution was administered and patient was observed for two minutes for signs or symptoms of complications, including abdominal pain, shortness of breath, bilateral upper or lower extremity weakness, nausea and vomiting, prior to steroid injection. At this point, a total of 3cc or 20mg of dexamethasone and 6mg betamethasone was injected without incident. Attention was then refocused to the left L5/S1 level where the identical procedure was replicated. The procedure tolerated the procedure well without signs or symptoms of complications prior to transfer to the recovery area continued monitoring without incident. The patient was then transferred to the recovery area where they were observed for an appropriate time after the injection. The patient reported a VAS score of 7 prior to the procedure and a post-procedure VAS of 0. POST OP INSTRUCTIONS The patient was provided a Pain Log to continue to record their response to the target-specific procedure prior to follow-up visit with their referring physician. Additionally, specific post-injection care instructions and a contact number to our office were provided if concerns arise regarding possible complications associated with the procedure are suspected.
== END 2022-08-28 14:55 | disposition home or self-care (01) ==
LOC: RAD 12:44
PROVIDERS: Family Provider Family Medicine; PCP Family Medicine; Referring Provider Physical Medicine & Rehabilitation; Visit Provider Physical Medicine & Rehabilitation
DX: M48.07 Spinal stenosis, lumbosacral region (principal); M51.17 Intervertebral disc disorders with radiculopathy, lumbosacral region
CPT/HCPCS: 64483; 99152; J0702; J1100; J2250; J3490

== ENCOUNTER 2023-01-13 14:00 | Outpatient (CLI) | payer OTHER, SELFPAY ==
[2023-01-13] VITALS (7 sets, daily range): BP systolic 136–160; BP diastolic 56–72; PULSE 53–60; RESP 15–20; TEMP 37; O2SAT 95–97
--- NOTE | 2023-01-13 14:01 | DI.RAD.S_ITS ---
PROCEDURE: PAIN SI JOINT INJECTION CAROL INDICATIONS: SACROILIAC DISORDER COMPARISON: None. FINDINGS: Fluoroscopic spot filming was performed to verify placement of spinal needles at the inferior margin of the bilateral SI joints as labeled on the films. Appropriate location(s) of the needle tip(s) was confirmed by injection of iodinated contrast. IMPRESSION: Access needles positioned in the bilateral SI joints for joint injection. Dictated by: Florencia Mendosa MD, PhD on 01/13/2023 at 15:43 Approved by: Florencia Mendosa MD, PhD on 01/13/2023 at 15:44
[2023-01-13] MEDS: MIDAZOLAM 2 MG/2 ML VIAL IV (14:55)
[2023-01-13] MEDS: IOPAMIDOL 15 ML VIAL 3 ML INJ (15:01)
[2023-01-13] MEDS: BUPIVACAINE 0.5% (PF) 10 ML VIAL 5 ML INJ (15:02)
[2023-01-13] MEDS: BETAMETHASONE 30 MG/5 ML MDV 12 MG INJ (15:02)
--- NOTE | 2023-01-13 15:18 | PM.PROC.IR.1 ---
Date/Time/Diagnoses Date of procedure: 01/13/23 Time of procedure: 15:18 Pre-procedure diagnosis: Sacroiliac joint pain/DJD Post-procedure diagnosis: same Procedure Notes Procedure: Fluoroscopic guided contrast controlled bilateral sacroiliac joint injection Indications: Jessica is referred by Dr. Collado for treatment of bilateral sacroiliac joint DJD Physician: Dung Ferrell Total Fluoroscopy time (seconds): 17 Total sedation minutes: 18 Complications: none Procedure in detail & Post-procedure care: Description of procedure Fluoroscopic guided, contrast controlled bilateral sacroiliac joint injection Following review of allergies and review of potential side effects and complications, including, but not necessarily limited to, infection, allergic reaction, local tissue breakdown, temporary as well as permanent nerve injury, paralysis, stroke and possible , the patient indicated that they understood and agreed to proceed. An informed consent was signed by the patient, witnessed by a nurse, and placed in the patient's chart. Additionally, other treatment options including modalities, medications, and physical therapy were reviewed with the patient. After review of previous anaesthesic history and IV conscious sedation the patient was deemed safe to proceed with today?s procedure with IV conscious sedation as ASA class II designation. Safety time-out was performed to confirm patient ID, procedure to be performed and site of procedure. IV sedation was accomplished with a combination of 2mg Versed were administered by the RN after DO order, titrated to patient comfort during the course of the procedure while the patient remained responsive to all verbal commands In the prone position following sterile prep and drape of the pelvic region, the hyper lucency on in the inferior aspect of the sacroiliac joint was identified fluoroscopically the skin was anesthetized be a 25 gauge 1.5 inch needle with approximately 2cc of 1% lidocaine solution. At this point, a 22 gauge 3 in spinal needle was atraumatically introduced and advanced under fluoroscopic guidance into the inferior aspect of the right sacroiliac joint. Following negative aspiration, approximately 0.3cc of Isovue-300 was injected confirming intra-articular placement without vascular uptake. Radiographic data, including multiple fluoroscopic views of the pelvis, reveals a spinal needle in the sacroiliac joint hyper lucent zone. Subsequent view show flow contrast tear superiorly and inferiorly within the joint capsule without vascular intrathecal uptake. At this point a total of 1cc of 0.5% Marcaine was combined with 1cc of 6mg of betamethasone was injected without incident. Attention was then refocused the left sacroiliac joint where the procedure was replicated. The procedure tolerated the procedure well without signs or symptoms of complications prior to transfer to the recovery area continued monitoring without incident. The patient was then transferred to the recovery area with a bur observed for an appropriate time after the injection. The patient reverted a vas score of 7 prior to the procedure and post-procedure vas of 1. Postop instructions The patient was provided with a pain like to continue to record the patient's response to the target specific procedure prior to the patient's follow-up visit with the referring physician. Additionally, specific post injection care instructions and a contact number to our office were provided if concerns arise regarding the possible complications associated with procedure are suspected.
== END 2023-01-13 15:30 | disposition home or self-care (01) ==
LOC: RAD 14:00
PROVIDERS: Family Provider Family Medicine; PCP Family Medicine; Referring Provider Physical Medicine & Rehabilitation; Visit Provider Physical Medicine & Rehabilitation
DX: M53.3 Sacrococcygeal disorders, not elsewhere classified (principal); M46.1 Sacroiliitis, not elsewhere classified
CPT/HCPCS: 27096; 99152; J0702; J2250

== ENCOUNTER → 2024-02-22 11:54 | Outpatient (CLI) | payer OTHER, SELFPAY ==
--- NOTE | 2024-02-22 11:57 | DI.RAD.S_ITS ---
PROCEDURE: XR LUMBAR SPINE MIN 4V INDICATIONS: Post laminectomy syndrome TECHNIQUE: 5 views of the lumbar spine were acquired, including bilateral oblique views. COMPARISON: [facility], , XR LUMBAR SPINE MIN 4V, 04/02/2020, 9:52. FINDINGS: Bones: 5 nonrib-bearing vertebrae are present. There is normal bony alignment. No vertebral body compression fractures. No suspicious bony lesions. Bulky marginal osteophytes at all levels. Moderate disc height loss at L4-5, L5-S1. Mild disc height loss at remaining levels. Lower lumbar facet arthrosis. Soft tissues: Overlying bowel gas pattern is normal. No suspicious soft tissue calcifications. Oblique images: No pars defects. IMPRESSION: Mild to moderate, multilevel degenerative disc disease and lower lumbar spine facet arthrosis. Dictated by: Prieto Green M.D. on 02/22/2024 at 15:11 Approved by: Prieto Green M.D. on 02/22/2024 at 15:12
== END ==
PROVIDERS: Family Provider Family Medicine; Referring Provider Physical Medicine & Rehabilitation; Visit Provider Physical Medicine & Rehabilitation
DX: M53.3 Sacrococcygeal disorders, not elsewhere classified (principal); M96.1 Postlaminectomy syndrome, not elsewhere classified; M47.816 Spondylosis without myelopathy or radiculopathy, lumbar region; M47.817 Spondylosis without myelopathy or radiculopathy, lumbosacral region; M51.36 Other intervertebral disc degeneration, lumbar region; M51.37 Other intervertebral disc degeneration, lumbosacral region
CPT/HCPCS: 72110

== ENCOUNTER 2024-03-15 14:55 | Outpatient (CLI) | payer OTHER, SELFPAY ==
[2024-03-15] VITALS (8 sets, daily range): BP systolic 115–183; BP diastolic 64–83; PULSE 57–67; RESP 16–22; TEMP 36.6; O2SAT 96–99
--- NOTE | 2024-03-15 15:27 | PC.NURSE ---
Patient is wearing cardiac halter monitor for SVT and PVCs. He has had no recent event but known issue and cardiology is monitors it every couple years for evaluation of possible ablation or pacemaker in the future. Denies any chest pain, SOB, headache or palpations at this time. Dr Ferrell notified.
--- NOTE | 2024-03-15 15:30 | DI.RAD.S_ITS ---
PROCEDURE: PAIN SI JOINT INJECTION CAROL INDICATIONS: Bilateral SI joint injection COMPARISON: [facility], XA, PAIN SI JOINT INJECTION CAROL, 01/13/2023, 15:01. FINDINGS: Fluoroscopic spot filming was performed to verify placement of spinal needles at the left and right SI joint level(s), as labeled on the films. Appropriate location(s) of the needle tip(s) was confirmed by injection of iodinated contrast. IMPRESSION: Needle and contrast placement overlying the SI joints. Dictated by: Tiffany Khan M.D. on 03/15/2024 at 17:51 Approved by: Tiffany Khan M.D. on 03/15/2024 at 17:52
[2024-03-15] MEDS: MIDAZOLAM 2 MG/2 ML VIAL 1 MG IV (15:52)
[2024-03-15] MEDS: iopamidoL 15 ML VIAL 3 ML INJ (15:57)
[2024-03-15] MEDS: BUPIVACAINE 0.5% (PF) 10 ML VIAL 5 ML INJ (15:58)
[2024-03-15] MEDS: BETAMETHASONE 30 MG/5 ML MDV 12 MG INJ (15:58)
[2024-03-15] MEDS: LIDOCAINE 1% 20 ML 5 ML INJ (15:59)
--- NOTE | 2024-03-15 16:17 | PM.PROC.IR.1 ---
Date/Time/Diagnoses Date of procedure: 03/15/24 Time of procedure: 16:17 Pre-procedure diagnosis: Sacroiliac joint pain/DJD Post-procedure diagnosis: same Procedure Notes Procedure: Fluoroscopic guided contrast controlled bilateral sacroiliac joint injection Indications: Jaydon is referred by Dr. Collado for treatment of bilateral sacroiliac joint DJD Physician: Dung Ferrell Total Fluoroscopy time (seconds): 21 Total sedation minutes: 19 Complications: none Procedure in detail & Post-procedure care: Description of procedure Fluoroscopic guided, contrast controlled bilateral sacroiliac joint injection Following review of allergies and review of potential side effects and complications, including, but not necessarily limited to, infection, allergic reaction, local tissue breakdown, temporary as well as permanent nerve injury, paralysis, stroke and possible , the patient indicated that they understood and agreed to proceed. An informed consent was signed by the patient, witnessed by a nurse, and placed in the patient's chart. Additionally, other treatment options including modalities, medications, and physical therapy were reviewed with the patient. After review of previous anaesthesic history and IV conscious sedation the patient was deemed safe to proceed with today?s procedure with IV conscious sedation as ASA class II designation. Safety time-out was performed to confirm patient ID, procedure to be performed and site of procedure. IV sedation was accomplished with a combination of 2mg Versed were administered by the RN after DO order, titrated to patient comfort during the course of the procedure while the patient remained responsive to all verbal commands In the prone position following sterile prep and drape of the pelvic region, the hyper lucency on in the inferior aspect of the sacroiliac joint was identified fluoroscopically the skin was anesthetized be a 25 gauge 1.5 inch needle with approximately 2cc of 1% lidocaine solution. At this point, a 22 gauge 3 in spinal needle was atraumatically introduced and advanced under fluoroscopic guidance into the inferior aspect of the right sacroiliac joint. Following negative aspiration, approximately 0.3cc of Isovue-300 was injected confirming intra-articular placement without vascular uptake. Radiographic data, including multiple fluoroscopic views of the pelvis, reveals a spinal needle in the sacroiliac joint hyper lucent zone. Subsequent view show flow contrast tear superiorly and inferiorly within the joint capsule without vascular intrathecal uptake. At this point a total of 1cc of 0.5% Marcaine was combined with 1cc of 6mg of betamethasone was injected without incident. Attention was then refocused the left sacroiliac joint where the procedure was replicated. The procedure tolerated the procedure well without signs or symptoms of complications prior to transfer to the recovery area continued monitoring without incident. The patient was then transferred to the recovery area with a bur observed for an appropriate time after the injection. The patient reverted a vas score of 7 prior to the procedure and post-procedure vas of 1. Postop instructions The patient was provided with a pain like to continue to record the patient's response to the target specific procedure prior to the patient's follow-up visit with the referring physician. Additionally, specific post injection care instructions and a contact number to our office were provided if concerns arise regarding the possible complications associated with procedure are suspected.
== END 2024-03-15 16:30 | disposition home or self-care (01) ==
PROVIDERS: Family Provider Family Medicine; Referring Provider Physical Medicine & Rehabilitation; Visit Provider Physical Medicine & Rehabilitation
DX: M53.3 Sacrococcygeal disorders, not elsewhere classified (principal); M46.1 Sacroiliitis, not elsewhere classified
CPT/HCPCS: 27096; 77002; 99152; 99153; J0702; J2250

== ENCOUNTER 2025-10-03 08:57 | Outpatient (CLI) | payer OTHER, SELFPAY ==
[2025-10-03] VITALS (8 sets, daily range): BP systolic 128–177; BP diastolic 61–79; PULSE 55–64; RESP 14–19; TEMP 36.3; O2SAT 95–99
[2025-10-03] MEDS: MIDAZOLAM 2 MG/2 ML VIAL IV (10:20)
--- NOTE | 2025-10-03 10:42 | P.PCN_ITS ---
Date/Time/Diagnoses Date of procedure: 10/03/25 Time of procedure: 10:42 Pre-procedure diagnosis: 1. CERVICAL STENOSIS, 2. CERVICAL HNP WITH UPPER EXTREMITY RADICULAR FEATURES Procedure Notes Procedure: FLUORSCOPICALLY GUIDED CONTRAST CONTROLLED INTERLAMINAR EPIDURAL STEROID INJECTION - C7/T1 TL FLACO Indications: Jaydon is referred by Dr. Durant for treatment of Cervical Stenosis. Physician: Dung Ferrell Total Fluoroscopy time (seconds): 37 Total sedation minutes: 15 Complications: none Procedure in detail & Post-procedure care: DESCRIPTION OF PROCEDURE Following review of allergy and review of potential side effects and complications, including, but not necessarily limited to, infection, allergic reaction, local tissue breakdown, temporary as well as permanent nerve injury, stroke, paralysis, and possible , the patient indicated that patient understood and agreed to proceed. An informed consent document was signed by the patient, witnessed by a nurse, and placed in the patient's chart. Additionally, other treatment options including modalities, medications, and physical therapy were reviewed with the patient. After review of previous anaesthesic history and IV conscious sedation the patient was deemed safe to proceed with todays procedure with IV conscious sedation as ASA class II designation. Safety time-out was performed to confirm patient ID, procedure to be performed and site of procedure. IV sedation was accomplished with a combination of 2mg of Versed administered by the RN after DO order, titrated to patient comfort during the course of the procedure while the patient remained responsive to all verbal commands. In the prone position, following sterile prep and drape of the cervical region, the C7/T1 translaminar space was identified fluoroscopically. The skin was anesthetized via a 25-gauge 1.5-inch needle with 1% lidocaine solution. At this point, a 25-gauge, 2.5-inch short bevel spinal needle was atraumatically introduced and advanced under fluoroscopic guidance into epidural space at the C7/T1 translaminar space. Depth was confirmed on lateral view. Radiological data, including multiple fluoroscopic views of the cervical spine, reveal a spinal needle at the C7/T1 translaminar space. Lateral views then show placement of the needle in the epidural space. Subsequent views show contrast material flowing superiorly and inferiorly in the epidural space. DSA fluoros copy with live contrast injection, once again, confirmed no vascular or intrathecal uptake. At this point, using loss of resistance technique with saline and air, the epidural space was entered. Following negative aspiration, injection of approximately 1.5 cc of Isovue-200 with live fluoroscopy in the AP view confirmed epidural flow in the epidural space without vascular or intrathecal uptake observed. Subsequently, a test dose of 1 cc of 1% lidocaine solution was injected and patient was observed for two minutes without signs or symptoms of complications, including abdominal pain, shortness of breath, bilateral upper or lower extremity weakness, nausea and vomiting, prior to steroid injection. At this point, 3cc or 30mg of dexamethasone was then injected without incident. The patient tolerated the procedure well without signs or symptoms of complications prior to transfer to the recovery area for further monitoring The patient was then transferred to the recovery area where they were observed for an appropriate period of time after the injection. The patient reported a VAS score of 6 prior to the procedure and a post-procedure VAS of 0 POST OP INSTRUCTIONS The patient was provided a Pain Log to continue to record the patient's response to the target-specific procedure prior to the patient's follow-up visit with the referring physician. Additionally, specific post-injection care instructions and a contact number to our office were provided if concerns arise regarding possible complications associated with the procedure are suspected.
== END 2025-10-03 10:56 | disposition home or self-care (01) ==
LOC: RAD 08:59
PROVIDERS: Family Provider Family Medicine; PCP Family Medicine; Referring Provider Physical Medicine & Rehabilitation; Visit Provider Physical Medicine & Rehabilitation
DX: M48.02 Spinal stenosis, cervical region (principal); M50.13 Cervical disc disorder with radiculopathy, cervicothoracic region
CPT/HCPCS: 62321; 99152; J1100; J2250